=== PATIENT | male | born 1965 | race Caucasian/White ===

== ENCOUNTER 2017-10-30 09:18 | Outpatient (CLI) | payer BC ==
[2017-10-30 11:07] LABS: #Eosinphils 0.1 thou/uL (0.0-0.7); #Lymphocytes 2.3 thou/uL (1.20-3.40); #Monocytes 0.6 thou/uL (0.11-0.59); #Neutrophils 3.8 thou/uL (1.40-6.50); %Basophils 0.5 % (0.0-1.0); %Monocytes 8.7 % (0.0-10.0); %Neutrophils 55.8 % (42.0-75.0); Hemoglobin 16.5 g/dL (14.0-18.0); Mean Corpuscular HGB CONC 34.8 g/dL (32.0-36.0); Mean Corpuscular Hemoglobin 33.6 pg (27.0-31.0); Mean Corpuscular Volume 96.6 fl (80.0-94.0); Mean Platelet Volume 6.7 fL (7.4-10.4); Platelet Count 271 thou/uL (130-400); RBC Distribution Width 11.1 % (11.5-14.5); Red Blood Cell (RBC) Count 4.91 mill/uL (4.70-6.10); White Blood Cell (WBC) Count 6.9 thou/uL (4.8-10.8)
[2017-10-30 11:26] LABS: Anion Gap 11 mmol/L (10-20); BUN (Urea Nitrogen) 21 mg/dL (8.9-20.6); Calc. Creatinine Clearance 0 mL/min (70-130); Calcium 9.5 mg/dL (7.8-10.44); Carbon Dioxide 25 mmol/L (22-29); Chloride 106 mmol/L (98-107); Estimated GFR-MDRD 81; Glucose 94 mg/dL (70-105); Potassium 4.2 mmol/L (3.5-5.1); Sodium 138 mmol/L (136-145)
== END 2017-10-30 09:19 | disposition home or self-care (01) ==
LOC: LABBT 09:18
PROVIDERS: ATTEND Surgery
DX: Z01.818 Encounter for other preprocedural examination (principal); K40.90 Unilateral inguinal hernia, without obstruction or gangrene, not specified as recurrent
CPT/HCPCS: 80048; 85025; 93005; 93010

== ENCOUNTER 2017-11-06 09:56 | Day surgery (SDC) | payer BC ==
[2017-10-30 10:04] VITALS: BMI 28.8
[2017-11-06] MEDS ORDERED: Bupivacaine 0.25% HCL 30 ML VIAL ONE (11:34)
[2017-11-06] MEDS ORDERED: Lidocaine 2% w/Epinephrine 1:200K 20 ML VIAL ONE (11:34)
[2017-11-06] MEDS ORDERED: CEFAZOLIN/Water 2 GM/20 ML SYRINGE ONE (11:41)
[2017-11-06] MEDS ORDERED: Fentanyl 100 MCG/2 ML VIAL ONE ×3 (11:50→14:46)
--- NOTE | 2017-11-06 15:46 | OP ---
DATE OF PROCEDURE: 11/06/2017 PREOPERATIVE DIAGNOSIS: Right inguinal hernia. POSTOPERATIVE DIAGNOSIS: Bilateral inguinal hernia. PROCEDURE: Laparoscopic da Lucila robot, bilateral inguinal hernia repair with mesh, ProGrip. SURGEON: Juan Daniel Walker M.D. ANESTHESIA: General. ESTIMATED BLOOD LOSS: Minimal. COMPLICATIONS: None. SPECIMEN: None. FINDINGS: Left indirect inguinal hernia, right direct inguinal hernia. TECHNIQUE: The patient was taken to the operating room and placed supine on the operating room supin e on the table. After general anesthetic was obtained, a Powell was placed. The abdomen was shaved, prepped and draped in a sterile fashion. Curved incision made above the umbilicus. Cautery was used to dissect down to and score the fascia. Abdominal cavity was entered bluntly using a Jaimie clamp. A 12-mm Ethicon trocar was placed. High-flow pneumoperitoneum was obtained. Left and right abdomin al 8 mm robot trocars were placed. The patient had been placed in Trendelenburg position and all por ts were docked to the robot. The peritoneum was taken down in the bilateral groins and the bilateral preperitoneal space was bluntly dissected. The direct hernia in the right groin was dissected out o f the defect high up onto the peritoneum. The cord structures were skeletonized and there were no i ndirect hernias. In the left groin, there was an indirect hernia sac that was dissected high up onto the peritoneum and out of the inguinal canal. Bilateral ProGrip mesh was brought in and the medial labeled aspect was placed over the pubic tubercle medially. The meshes are unfolded to completely co shade the direct, indirect, and femoral areas. Stratafix was used to reapproximate the peritoneum bila teral. All ports were infiltrated using local anesthetic. All ports were removed under camera visua lization. Pneumoperitoneum was let down. PDS was used to close the fascial defect above the umbilic us. All incisions were irrigated and closed using 4-0 Monocryl and Dermabond. The patient was en ro redding to recovery in stable condition. All instrument counts, needle counts, and lap counts were corre ct.
== END 2017-11-06 16:45 | disposition home or self-care (01) ==
LOC: SDC 09:56
PROVIDERS: ATTEND Surgery
PROC: 8E0W4CZ Robotic Assisted Procedure of Trunk Region, Percutaneous Endoscopic Approach (ICD-10-PCS; principal; 2017-11-06)
PROC: 0YUA4JZ Supplement Bilateral Inguinal Region with Synthetic Substitute, Percutaneous Endoscopic Approach (ICD-10-PCS; principal; 2017-11-06)
DX: K40.20 Bilateral inguinal hernia, without obstruction or gangrene, not specified as recurrent (principal); Z79.82 Long term (current) use of aspirin; Z88.0 Allergy status to penicillin; Z98.52 Vasectomy status; Z90.49 Acquired absence of other specified parts of digestive tract; Z98.890 Other specified postprocedural states; Z86.711 Personal history of pulmonary embolism
CPT/HCPCS: 96374; J3010; S0020